=== PATIENT | female | born 1980 | race Caucasian/White ===

== ENCOUNTER 2019-08-27 03:36 | Emergency (ER) | payer OTHER ==
[2019-08-27] MEDS ORDERED: oxyCODONE 5 MG Tab PO ONE (04:06)
[2019-08-27] MEDS ORDERED: Ketorolac 60 MG/2 ML SDV IM ONE (04:06)
--- NOTE | 2019-08-27 04:13 | EDM.PDOC ---
ED HPI GENERAL MEDICAL PROBLEM - General Chief Complaint: Back Pain or Injury Stated Complaint: FELL PAIN LT SIDE/RIBS Time Seen by Provider: 08/27/19 04:00 Source of Information: Reports: Patient History Limitations: Reports: Other (no old records) - History of Present Illness INITIAL COMMENTS - FREE TEXT/NARRATIVE: 38 yo female fell hitting her L [place] 6 [place]. Took ibuprofen initially and later acetaminophen just before arrival. Has pain with breathing. No SOB. Is visiting from out of town. Is not . Onset: Sudden Onset Date: 08/26/19 Onset Time: 18:00 Duration: Hour(s): (10), Constant Location: Reports: Back (L flank-low) Quality: Reports: Ache, Sharp Severity: Severe Improves with: Reports: Rest Worsens with: Reports: Movement Context: Reports: Trauma Associated Symptoms: Reports: No Other Symptoms. 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 Denies: Shortness of Breath, Cough, Sputum, Hemoptysis Musculoskeletal: Reports: Back Pain (L low flank area) Skin: Reports: Wound (abrasion L low flank area) Neurological: Reports: No Symptoms ED EXAM, GENERAL - Physical Exam Exam: See Below Exam Limited By: No Limitations General Appearance: Alert, WD/WN, No Apparent Distress Eye Exam: Bilateral Eye: Normal Inspection Ears: Normal External Exam, Normal Canal, Hearing Grossly Normal Ear Exam: Bilateral Ear: Auricle Normal, Canal Normal Nose: Normal Inspection, No Blood Throat/Mouth: Normal Inspection, Normal Lips, Normal Voice, No Airway Compromise Head: Atraumatic, Normocephalic Neck: Normal Inspection Respiratory/Chest: No Respiratory Distress, Lungs Clear, Normal Breath Sounds, No Accessory Muscle Use, Chest Non-Tender Cardiovascular: Regular Rate, Rhythm, No Edema GI/Abdominal: Soft, Non-Tender, No Distention Back Exam: CVA Tenderness (L). No: CVA Tenderness (R), Vertebral Tenderness Extremities: Normal Inspection, Normal Range of Motion, Non-Tender, No Pedal Edema Neurological: Alert, Oriented, CN II-XII Intact, Normal Cognition, No Motor/Sensory Deficits Psychiatric: Normal Affect, Normal Mood Skin Exam: Warm, Dry, Normal Color, No Rash, Wound/Incision (abrasion L low flank area) Course - Vital Signs Last Recorded V/S: Last Vital Signs Temp 35.7 C L 08/27/19 03:59 Pulse 80 08/27/19 03:59 Resp 16 08/27/19 03:59 BP 127/72 08/27/19 03:59 Pulse Ox 99 08/27/19 03:59 Orthostatic Blood Pressure [ 107/67 Standing] Orthostatic Blood Pressure [ 109/64 Sitting] Orthostatic Blood Pressure [ 102/58 Side, Right] - Orders/Labs/Meds Orders: Active Orders 24 hr Category Date Time Status Orthostatic Vital Signs [RC] ASDIRECTED Care 08/27/19 04:07 Active UA W/MICROSCOPIC [URIN] Stat Lab 08/27/19 04:07 Ordered Meds: Medications Discontinued Medications Generic Name Dose Route Start Last Admin Trade Name Freq PRN Reason Stop Dose Admin Ketorolac Tromethamine 60 mg 08/27/19 04:06 08/27/19 04:13 Toradol IM 08/27/19 04:07 60 mg ONETIME ONE Administration Oxycodone HCl 5 mg 08/27/19 04:06 08/27/19 04:12 Oxycodone PO 08/27/19 04:07 5 mg ONETIME ONE Administration - Radiology Interpretation Free Text/Narrative:: CXR-? L 11th rib fx, small apical pneumothorax Departure - Departure Time of Disposition: 06:00 Disposition: Home, Self-Care 01 Condition: Fair Clinical Impression: Pneumothorax on left Left rib fracture Qualifiers: Encounter type: initial encounter Rib fracture type: single rib Fracture type: closed Qualified Code(s): S22.32XA - Fracture of one rib, left side, initial encounter for closed fracture - Discharge Information *PRESCRIPTION DRUG MONITORING PROGRAM REVIEWED*: No *COPY OF PRESCRIPTION DRUG MONITORING REPORT IN PATIENT AYDE: No Instructions: Pneumothorax, Rib Fracture, [id number] Referrals: PCP,None [Primary Care Provider] - Forms: ED Department Discharge, ED Return to Work/School Form Additional Instructions: Take ibuprofen 600 mg every 6 hrs with food for pain relief. Add either acetaminophen OR [place] for added relief as needed. Recheck in a clinic of your choice Thursday for a repeat chest X-ray. Return to the ER this if you become short of breath. Drink ample fluids. Rest. Sepsis Event Note (ED) - Evaluation Sepsis Screening Result: No Definite Risk - Focused Exam Vital Signs: Vital Signs Temp Pulse Resp BP Pulse Ox 08/27/19 03:59 35.7 C L 80 16 127/72 99 08/27/19 03:50 35.7 C L 80 16 127/72 99 - My Orders Last 24 Hours: My Active Orders 08/27/19 04:07 Orthostatic Vital Signs [RC] ASDIRECTED UA W/MICROSCOPIC [URIN] Stat - Assessment/Plan Last 24 Hours: My Active Orders 08/27/19 04:07 Orthostatic Vital Signs [RC] ASDIRECTED UA W/MICROSCOPIC [URIN] Stat
--- NOTE | 2019-08-27 04:52 | CRLCR ---
Indication: Fall, rib pain Technique: Chest 2 views Comparison: None Findings: Cardiovascular and mediastinum: Heart size and vasculature are normal in caliber and appearance. Lungs and pleural spaces: No pleural effusion or focal consolidation. Small left apical pneumothorax with 12 millimeters pleural separation at the apex. Bones and soft tissues: No significant findings. Impression: Small left apical pneumothorax. Discussed with Dr. Suh at 0449 on 08/27/2019 Dictated by Nemesio Dumont MD @ Aug 27 2019 4:44AM Signed by Dr. Nemesio Dumont @ Aug 27 2019 4:50AM
== END 2019-08-27 06:01 | disposition home or self-care (01) ==
LOC: JP.ED 03:36
DX: S27.0XXA Traumatic pneumothorax, initial encounter (principal); S22.32XA Fracture of one rib, left side, initial encounter for closed fracture; S30.811A Abrasion of abdominal wall, initial encounter; Z91.030 Bee allergy status; Z91.09 Other allergy status, other than to drugs and biological substances; W22.8XXA Striking against or struck by other objects, initial encounter
CPT/HCPCS: 71046; 81001; 96372; 99284; A9270; J1885